=== PATIENT | female | born 1945 | race Two or more races ===

== ENCOUNTER 2024-06-04 09:27 | Outpatient (CLI) | payer OTHER ==
[~2024-06-04 09:27] MED LIST: CAPOTEN12.5 MG PO
== END 2024-06-04 09:36 | disposition home or self-care (01) ==
LOC: SONOGRAMA 09:27
PROVIDERS: ATTEND Physical Medicine & Rehabilitation Hospice and Palliative Medicine
DX: M25.512 Pain in left shoulder (principal); M25.012 Hemarthrosis, left shoulder; M75.32 Calcific tendinitis of left shoulder